=== PATIENT | female | born 1980 | race Two or more races ===

== ENCOUNTER 2024-03-11 09:20 | Emergency (ER) | payer OTHER ==
[2024-03-11 09:34] VITALS: BP 130/93; PULSE 84; RESP 20; TEMP 97.6; BMI 22.3
[2024-03-11] MEDS ORDERED: KETOROLAC TROMETHAMINE 30 MG/1 ML VIAL ONE (10:52)
[2024-03-11] MEDS: KETOROLAC TROMETHAMINE 30 MG/1 ML VIAL IVPUSH ONE (10:53)
[2024-03-11 11:00] LABS: BASO % 0.3 % (0-2.0); EOS % 0.6 % (0-4.5); HEMATOCRIT 42.1 % (32.4-45.2); LYMPH % 18.9 % (8-40); MCH 32.1 pg (25.7-33.7); MCHC 33.3 g/dl (32.0-36.0); MEAN CELL VOLUME 96.6 fl (80-96); MEAN PLT VOLUME 9.1 fl (7.5-11.1); MONO % 4.6 % (3.8-10.2); NEUT % 75.6 % (42.8-82.8); PLATELET COUNT 198 10^3/uL (134-434); RBC 4.36 M/mm3 (3.60-5.2); RDW 13.3 % (11.6-15.6); WHITE BLOOD COUNT 7.1 K/mm3 (4.0-10.0)
[2024-03-11 13:02] LABS: POTASSIUM 4.3 mmol/L (3.5-5.1)
[2024-03-11 13:03] LABS: CALCIUM 9.1 mg/dL (8.5-10.1)
[2024-03-11 13:04] LABS: BLOOD UREA NITROGEN 16.1 mg/dL (7-18)
[2024-03-11 13:07] LABS: CREATININE 0.9 mg/dL (0.55-1.3)
[2024-03-11 13:09] LABS: BILIRUBIN,TOTAL 0.5 mg/dL (0.2-1); TOT PROT 7.4 g/dl (6.4-8.2)
[2024-03-11 13:32] LABS: HIV INTERPRETATION NEGATIVE (NEGATIVE)
== END 2024-03-11 13:20 | disposition home or self-care (01) ==
LOC: JER 09:20
PROC: 3E0333Z Introduction of Anti-inflammatory into Peripheral Vein, Percutaneous Approach (ICD-10-PCS; principal; 2024-03-11)
DX: R07.89 Other chest pain (principal)
CPT/HCPCS: 36415; 71046-TC-FY; 80053; 82550; 84443; 84484; 85025; 86803; 87389; 93005; 93010; 99285-25